=== PATIENT | male | born 1955 | race Caucasian/White ===

== ENCOUNTER → 2019-09-28 10:21 | Outpatient (BNVA) | payer MEDICARE, OTHER, SELFPAY | PROVIDERS: Family Provider Electrodiagnostic Medicine; PCP Electrodiagnostic Medicine; Referring Provider Electrodiagnostic Medicine; Visit Provider Otolaryngology | DX: J32.9 Chronic sinusitis, unspecified (principal); J34.2 Deviated nasal septum; J34.3 Hypertrophy of nasal turbinates | CPT/HCPCS: 96372; 99214; J3301 ==

== ENCOUNTER 2019-10-06 14:57 | Outpatient (CLI) | payer MEDICARE, OTHER, SELFPAY ==
--- NOTE | 2019-10-06 15:30 | CT_ITS ---
WS: [id number] CT PARANASAL SINUSES HISTORY: sinusitis TECHNIQUE: Contiguous 2.5 mm axial images obtained through the sinuses. Images are reconstructed in s agittal and coronal planes. All CT scans at [facility] use at least one of these dose opt imization techniques: automated exposure control; mA and/or kV adjustment per patient size (includes targeted exams where dose is matched to clinical indication); or iterative reconstruction. DLP: 361.68 mGycm COMPARISON: None available. Frontal sinuses: Poorly pneumatized with no acute or chronic mucoperiosteal thickening. Sphenoid sinus: Normal. Ethmoid sinuses: Normal. Maxillary sinus: Mild mucoperiosteal thickening in the posterior LEFT maxillary sinus. No air-fluid l evels. Ostiomeatal unit: Patent with no soft tissue thickening or obstruction. Nasal septum is midline. No spurring. CT/CT sinus wo con* [id number] IMPRESSION: 1. Minimal mucoperiosteal thickening in the LEFT maxillary sinus. 2. No acute sinus disease. 3. Nonobstructed ostiomeatal units.
== END 2019-10-06 14:58 | disposition home or self-care (01) ==
LOC: RADWPI 15:06
PROVIDERS: Family Provider Electrodiagnostic Medicine; PCP Electrodiagnostic Medicine; Visit Provider Otolaryngology
DX: J32.9 Chronic sinusitis, unspecified (principal)
CPT/HCPCS: 70486

== ENCOUNTER → 2019-10-10 13:00 | Outpatient (BNVA) | payer MEDICARE, OTHER, SELFPAY | PROVIDERS: Family Provider Electrodiagnostic Medicine; PCP Electrodiagnostic Medicine; Referring Provider Electrodiagnostic Medicine; Visit Provider Otolaryngology | DX: Z09 Encounter for follow-up examination after completed treatment for conditions other than malignant neoplasm (principal); J32.9 Chronic sinusitis, unspecified; J34.3 Hypertrophy of nasal turbinates; J34.2 Deviated nasal septum | CPT/HCPCS: 99213; 99214 ==

== ENCOUNTER → 2022-07-09 08:56 | Outpatient (BNVA) | payer MEDICARE, OTHER, SELFPAY | PROVIDERS: PCP Electrodiagnostic Medicine; Visit Provider Otolaryngology | DX: J32.9 Chronic sinusitis, unspecified (principal); K13.79 Other lesions of oral mucosa; R09.82 Postnasal drip; J34.89 Other specified disorders of nose and nasal sinuses; Z87.891 Personal history of nicotine dependence | CPT/HCPCS: 99203 ==

== ENCOUNTER 2024-12-28 10:17 | Outpatient (CLI) | payer MEDICARE, OTHER, SELFPAY ==
--- NOTE | 2024-12-28 10:29 | CT_ITS ---
WS: [id number] CT CHEST ANGIOGRAPHY WITH REFORMATS HISTORY: DYSPNEA TECHNIQUE: Contiguous axial images are obtained through the chest during arterial injection of intravenous contrast. Images are reconstructed to evaluate the pulmonary arteries. MIP imaging also reviewed. All CT scans at [facility] use at least one of these dose optimization techniques: automated exposure control; mA and/or kV adjustment per patient size (includes targeted exams where dose is matched to clinical indication); or iterative reconstruction. CONTRAST: Omnipaque 350; 100 mL IV. DLP: 464.83 mGy.cm COMPARISON: 07/29/2019 Good opacification of the pulmonary arteries. No filling defects or pulmonary emboli. Very mild atherosclerosis aorta. Prior CABG. LEFT subclavian cardiac pacer. Mild LEFT heart enlargement. No RIGHT heart strain. No suspicious masses. There are a few tiny micronodules at the lung bases. No consolidation. Mild pleural thickening. Bilateral hilar lymph nodes are enlarged. Largest lymph node at the RIGHT hilum is 1.8 cm. Smaller LEFT hilar lymph node 1.1 cm. There are smaller scattered paratracheal lymph nodes. Large hiatal hernia. Prior cholecystectomy. No adrenal mass. Large bridging thoracic spine osteophytes. Mild anterior wedging of T3. CT/CT angio chest PE protcl [id number] IMPRESSION: 1. No pulmonary embolism. 2. Prior CABG and LEFT subclavian pacer. 3. No pneumonia. 4. Mildly enlarged bilateral hilar lymph nodes, RIGHT hilar lymph node is 1.8 cm. Slightly increased in size since 2019. 5. Prior cholecystectomy. 6. Large hiatal hernia.
[2024-12-28 11:31] LABS: Blood Urea Nitrogen 9 mg/dL (8-23); Glomerular Filtration Rate 54.6 mL/min (90-130)
[2024-12-28] MEDS: iohexol 350 mg/mL 500 mL Btl (per mL) IV (11:37)
[2024-12-28 11:51] LABS: Thyroid Stimulating Hormone 4.32 uIU/mL (0.27-4.20)
== END 2024-12-28 10:18 | disposition home or self-care (01) ==
LOC: RAD 10:21
PROVIDERS: PCP Electrodiagnostic Medicine; Visit Provider Electrodiagnostic Medicine
DX: E78.00 Pure hypercholesterolemia, unspecified (principal); R06.00 Dyspnea, unspecified; Z98.890 Other specified postprocedural states; R59.0 Localized enlarged lymph nodes; Z90.49 Acquired absence of other specified parts of digestive tract; K44.9 Diaphragmatic hernia without obstruction or gangrene; I70.0 Atherosclerosis of aorta; Z96.89 Presence of other specified functional implants; J92.9 Pleural plaque without asbestos; M25.78 Osteophyte, vertebrae; M48.54XA Collapsed vertebra, not elsewhere classified, thoracic region, initial encounter for fracture
CPT/HCPCS: 71275; 82565; 84443; 84520